=== PATIENT | female | born 1980 | race Caucasian/White ===

== ENCOUNTER 2017-04-25 23:09 | Outpatient (CLI) | payer OTHER ==
[~2017-04-25] VITALS: Ht 172.7 cm; Wt 84.0 kg
== END 2017-04-26 00:12 | disposition home or self-care (01) ==
LOC: LDOP 23:09
PROVIDERS: ATTEND Obstetrics & Gynecology Maternal & Fetal Medicine
DX: O09.513 Supervision of elderly primigravida, third trimester (principal); O36.8130 Decreased fetal movements, third trimester, not applicable or unspecified; Z3A.38 38 weeks gestation of pregnancy
CPT/HCPCS: 59025; 99211; G0463

== ENCOUNTER 2017-05-03 23:18 | Inpatient (IN) | payer OTHER ==
[~2017-05-03] VITALS: Ht 172.7 cm; Wt 85.0 kg
[2017-05-04 00:14] VITALS: BP 126/65
[2017-05-04] MEDS ORDERED: OXYTOCIN 30U/ 0.9% NaCL 500ML 500 ML ONE ×2 (01:18→18:57)
[2017-05-04] MEDS ORDERED: NEWBORN KIT ONE (01:27)
[2017-05-04] MEDS ORDERED: D5%-LACTATED RINGERS 1,000 ML IV SCH (01:29)
[2017-05-04] MEDS ORDERED: OXYTOCIN 30U/ 0.9% NaCL 500ML 500 ML IV PRN (01:29)
[2017-05-04] MEDS ORDERED: OXYTOCIN 30U/ 0.9% NaCL 500ML 500 ML IV ONE (01:29)
[2017-05-04] MEDS ORDERED: TERBUTALINE 1 MG/ML, 1ML IVPush PRN (01:30)
[2017-05-04] MEDS ORDERED: FENTANYL PF 100 MCG/2ML IV PRN (01:30)
[2017-05-04] MEDS ORDERED: CALCIUM CARBONATE 500 MG TAB.CHEW PO PRN (01:30)
[2017-05-04] MEDS ORDERED: ONDANSETRON 2MG/ML, 2ML IVPush PRN ×2 (01:30→19:30)
[2017-05-04] MEDS ORDERED: FENTANYL PF 100 MCG/2ML IVPush PRN (01:30)
[2017-05-04] MEDS ORDERED: ALUMINUM/MAG/SIMETHICONE 30 ML UDC PO PRN (01:30)
[2017-05-04] MEDS ORDERED: TERBUTALINE 1 MG/ML, 1ML SQ PRN (01:30)
[2017-05-04] MEDS ORDERED: SODIUM CITRATE/CITRIC ACID 30 ML UDC PO PRN (01:30)
[2017-05-04] MEDS ORDERED: METOCLOPRAMIDE 5 MG/ML, 2ML IVPush PRN (01:30)
[2017-05-04 02:03] LABS: BASOPHILS # (AUTO) 0.17 x10^3/uL (0-0.1); BASOPHILS % (AUTO) 1 % (0-1); EOSINOPHILS # (AUTO) 0.14 x10^3/uL (0-0.4); EOSINOPHILS % (AUTO) 1 % (1-7); LYMPHOCYTES # (AUTO) 2.17 x10^3/uL (1-3.4); LYMPHOCYTES % (AUTO) 18 % (22-44); MD NO; MEAN CORPUSCULAR HEMOGLOBIN 32.8 pg (27.0-34.8); MEAN CORPUSCULAR VOLUME 96.5 fL (80-100); MEAN PLATELET VOLUME 7.7 fL (7.4-10.4); MONOCYTES # (AUTO) 0.64 x10^3/uL (0.2-0.8); MONOCYTES % (AUTO) 5 % (2-9); NEUTROPHILS # (AUTO) 9.01 x10^3/uL (1.8-6.8); NEUTROPHILS % (AUTO) 74 % (42-75); PLATELET COUNT 224 x10^3/uL (130-400); RED BLOOD COUNT 3.92 x10^6/uL (3.82-5.3); RED CELL DISTRIBUTION WIDTH 13.8 % (9.6-15.2)
[2017-05-04] MEDS: LACTATED RINGERS 1,000 ML IV SCH ×5 (06:18→17:26)
[2017-05-04] MEDS ORDERED: FENTANYL PF 100 MCG/2ML ONE (09:35)
[2017-05-04] MEDS ORDERED: ONDANSETRON 2MG/ML, 2ML ONE (09:35)
[2017-05-04] MEDS ORDERED: BUPIVACAINE/PF 0.25% ONE (09:58)
[2017-05-04] MEDS ORDERED: FENTANYL/BUPIV./NS/PF 250 ML EPIDCONT ONE ×2 (09:59→10:00)
[2017-05-04] MEDS ORDERED: BUPIVACAINE 0.25% ONE (10:00)
[2017-05-04] MEDS ORDERED: LIDOCAINE/PF 1.5%-EPI 1:200K, 30ML ONE (10:00)
[2017-05-04] MEDS ORDERED: METHYLERGONOVINE 0.2 MG/ML IM PRN (17:30)
[2017-05-04] MEDS ORDERED: CARBOPROST TROMETHAMINE 250 MCG/ML, 1ML IM PRN (17:30)
[2017-05-04] MEDS ORDERED: DIPH,PERTUSS(ACELL),TET VAC/PF NC IM-VACC PRN (17:30)
[2017-05-04] MEDS ORDERED: MISOPROSTOL 200 MCG TABLET PR PRN (17:30)
[2017-05-04] MEDS ORDERED: IBUPROFEN 600 MG TABLET ONE (18:57)
[2017-05-04] MEDS: OXYTOCIN 30U/ 0.9% NaCL 500ML 500 ML IV SCH (18:59)
[2017-05-04] MEDS ORDERED: OXYcodone/APAP 5/325MG TABLET PO PRN (19:00)
[2017-05-04] MEDS: IBUPROFEN 200 MG TABLET PO PRN (19:01)
[2017-05-04] MEDS ORDERED: FENTANYL/BUPIV./NS/PF 250 ML EPIDCONT SCH (19:02)
[2017-05-04] MEDS ORDERED: LACTATED RINGERS 1,000 ML IV SCH (19:02)
[2017-05-04] MEDS ORDERED: NALOXONE 0.4 MG/ML, 1ML IVPush PRN (19:30)
[2017-05-04] MEDS ORDERED: EPHEDRINE 50 MG/ML, 1ML IVPush PRN (19:30)
[2017-05-04] MEDS ORDERED: LACTATED RINGERS 1,000 ML IVBOLUS PRN (19:30)
[2017-05-04 19:55] VITALS: BP 113/58
[2017-05-05 00:11] VITALS: BP 103/50
[2017-05-05] MEDS: IBUPROFEN 200 MG TABLET PO PRN ×3 (00:55→14:58)
[2017-05-05 01:40] LABS: BASOPHILS # (AUTO) 0.02 x10^3/uL (0-0.1); BASOPHILS % (AUTO) 0 % (0-1); EOSINOPHILS # (AUTO) 0.06 x10^3/uL (0-0.4); EOSINOPHILS % (AUTO) 0 % (1-7); LYMPHOCYTES # (AUTO) 1.44 x10^3/uL (1-3.4); LYMPHOCYTES % (AUTO) 8 % (22-44); MD NO; MEAN CORPUSCULAR HEMOGLOBIN 33.2 pg (27.0-34.8); MEAN CORPUSCULAR HGB CONC 34.4 g/dL (32.4-35.8); MEAN CORPUSCULAR VOLUME 96.6 fL (80-100); MEAN PLATELET VOLUME 7.9 fL (7.4-10.4); MONOCYTES # (AUTO) 0.58 x10^3/uL (0.2-0.8); MONOCYTES % (AUTO) 3 % (2-9); NEUTROPHILS # (AUTO) 15.13 x10^3/uL (1.8-6.8); NEUTROPHILS % (AUTO) 88 % (42-75); PLATELET COUNT 196 x10^3/uL (130-400); RED BLOOD COUNT 3.48 x10^6/uL (3.82-5.3); RED CELL DISTRIBUTION WIDTH 13.9 % (9.6-15.2)
[2017-05-05] MEDS: OXYTOCIN 30U/ 0.9% NaCL 500ML 500 ML IV SCH (03:19)
[2017-05-05 05:15] VITALS: BP 98/49
[2017-05-05 07:55] VITALS: BP 99/61
[2017-05-05] MEDS ORDERED: PRENATAL VIT/IRON/FA 1 EACH TABLET PO SCH (09:00)
[2017-05-05 20:15] VITALS: BP 104/62
[2017-05-06 07:55] VITALS: BP 101/63
== END 2017-05-06 11:00 | disposition home or self-care (01) | DRG 775 ==
LOC: LDOP 23:18 → LDIP 05-04 01:24 → 2NW 05-04 19:40
PROVIDERS: ADMIT Obstetrics & Gynecology Maternal & Fetal Medicine; ATTEND Obstetrics & Gynecology Maternal & Fetal Medicine
PROC: 10E0XZZ Delivery of Products of Conception, External Approach (ICD-10-PCS; principal; 2017-05-04)
DX: O48.0 Post-term pregnancy (principal); O42.92 Full-term premature rupture of membranes, unspecified as to length of time between rupture and onset of labor; Z37.0 Single live birth; Z3A.41 41 weeks gestation of pregnancy
CPT/HCPCS: 36415; 85025; 86850; 86900; 89060; J2405; J3010; J3490; J2590; J7120; J7121; Q0114

== ENCOUNTER 2018-04-17 11:03 | Outpatient (CLI) | payer SELFPAY ==
[~2018-04-17] VITALS: Ht 172.7 cm; Wt 76.4 kg
[2018-04-17 11:12] VITALS: BP 102/63
[2018-04-17 11:36] LABS: MICROSCOPIC INDICATED
== END 2018-04-17 12:27 | disposition home or self-care (01) ==
LOC: LDOP 11:03
PROVIDERS: ATTEND Obstetrics & Gynecology Maternal & Fetal Medicine
DX: O26.892 Other specified pregnancy related conditions, second trimester (principal); Z3A.28 28 weeks gestation of pregnancy
CPT/HCPCS: 59025; 81001; 87086; 99201; G0463

== ENCOUNTER 2018-07-06 16:48 | Inpatient (IN) | payer OTHER ==
[~2018-07-06] VITALS: Ht 172.7 cm; Wt 81.8 kg
[2018-07-06] MEDS ORDERED: LIDOCAINE 1%, 20ML ONE (16:56)
[2018-07-06] MEDS ORDERED: NEWBORN KIT ONE (16:56)
[2018-07-06] MEDS ORDERED: OXYTOCIN 30U/ 0.9% NaCL 500ML 500 ML ONE ×2 (16:56→20:34)
[2018-07-06] MEDS ORDERED: MISOPROSTOL 200 MCG TABLET ONE (16:56)
[2018-07-06] MEDS ORDERED: FENTANYL PF 100 MCG/2ML ONE (16:59)
[2018-07-06] MEDS ORDERED: OXYTOCIN 30U/ 0.9% NaCL 500ML 500 ML IV ONE (16:59)
[2018-07-06] MEDS ORDERED: D5%-LACTATED RINGERS 1,000 ML IV SCH (16:59)
[2018-07-06] MEDS ORDERED: FENTANYL PF 100 MCG/2ML IV PRN (17:00)
[2018-07-06] MEDS ORDERED: SODIUM CITRATE/CITRIC ACID 30 ML UDC PO PRN (17:00)
[2018-07-06] MEDS: LACTATED RINGERS 1,000 ML IV SCH ×2 (17:00→18:24)
[2018-07-06] MEDS ORDERED: FENTANYL PF 100 MCG/2ML IVPush PRN (17:00)
[2018-07-06] MEDS ORDERED: ONDANSETRON 2MG/ML, 2ML IVPush PRN (17:00)
[2018-07-06] MEDS ORDERED: METOCLOPRAMIDE 5 MG/ML, 2ML IVPush PRN (17:00)
[2018-07-06] MEDS: OXYTOCIN 30U/ 0.9% NaCL 500ML 500 ML IV SCH (18:03)
[2018-07-06] MEDS ORDERED: IBUPROFEN 600 MG TABLET ONE (18:19)
[2018-07-06] MEDS ORDERED: OXYcodone/APAP 5/325MG TABLET ONE (18:19)
[2018-07-06] MEDS: IBUPROFEN 600 MG TABLET PO PRN (18:23)
[2018-07-06] MEDS ORDERED: CARBOPROST TROMETHAMINE 250 MCG/ML, 1ML IM PRN (18:30)
[2018-07-06] MEDS ORDERED: ACETAMINOPHEN 325 MG TABLET PO PRN (18:30)
[2018-07-06] MEDS ORDERED: DOCUSATE 100 MG CAPSULE PO PRN (18:30)
[2018-07-06] MEDS ORDERED: METHYLERGONOVINE 0.2 MG/ML IM PRN (18:30)
[2018-07-06] MEDS ORDERED: RHOGAM FROM BLOOD BANK 1 NOTE EA IM/IV ONE (18:30)
[2018-07-06] MEDS ORDERED: DIPH,PERTUSS(ACELL),TET VAC/PF NC IM-VACC PRN (18:30)
[2018-07-06] MEDS ORDERED: OXYcodone/APAP 5/325MG TABLET PO PRN ×2 (18:30)
[2018-07-06] MEDS ORDERED: MISOPROSTOL 200 MCG TABLET PR PRN (18:30)
[2018-07-06] MEDS ORDERED: MEASLES,MUMPS&RUBELLA VACC/PF 0.5 ML SQ-VACC PRN (18:30)
[2018-07-06 20:20] VITALS: BP 105/65
[2018-07-07 00:35] VITALS: BP 109/67
[2018-07-07 02:36] LABS: BASOPHILS % (AUTO) 1 % (0-1); EOSINOPHILS # (AUTO) 0.06 x10^3/uL (0-0.4); EOSINOPHILS % (AUTO) 0 % (1-7); LYMPHOCYTES # (AUTO) 1.89 x10^3/uL (1-3.4); LYMPHOCYTES % (AUTO) 13 % (22-44); MD NO; MEAN CORPUSCULAR HEMOGLOBIN 33.2 pg (27.0-34.8); MEAN PLATELET VOLUME 7.4 fL (7.4-10.4); MONOCYTES # (AUTO) 0.54 x10^3/uL (0.2-0.8); MONOCYTES % (AUTO) 4 % (2-9); NEUTROPHILS # (AUTO) 12.01 x10^3/uL (1.8-6.8); NEUTROPHILS % (AUTO) 82 % (42-75); PLATELET COUNT 200 x10^3/uL (130-400); RED BLOOD COUNT 3.93 x10^6/uL (3.82-5.3); RED CELL DISTRIBUTION WIDTH 13.7 % (9.6-15.2)
[2018-07-07] MEDS: OXYTOCIN 30U/ 0.9% NaCL 500ML 500 ML IV SCH ×2 (04:03→14:03)
[2018-07-07 04:15] VITALS: BP 104/54
[2018-07-07] MEDS: IBUPROFEN 600 MG TABLET PO PRN (04:53)
[2018-07-07 08:30] VITALS: BP 102/62
[2018-07-07] MEDS ORDERED: PRENATAL VIT/IRON/FA 1 EACH TABLET PO SCH (09:00)
[2018-07-07 12:15] VITALS: BP 100/63
[2018-07-07 20:25] VITALS: BP 111/71
== END 2018-07-07 23:45 | disposition home or self-care (01) | DRG 807 ==
LOC: LDOP 16:48 → LDIP 16:57 → 2NW 20:22
PROVIDERS: ADMIT Obstetrics & Gynecology Maternal & Fetal Medicine; ATTEND Obstetrics & Gynecology Maternal & Fetal Medicine
PROC: 10E0XZZ Delivery of Products of Conception, External Approach (ICD-10-PCS; principal; 2018-07-06)
DX: O99.52 Diseases of the respiratory system complicating childbirth (principal); Z37.0 Single live birth; Z3A.39 39 weeks gestation of pregnancy; J45.909 Unspecified asthma, uncomplicated
CPT/HCPCS: 36415; 85025; G0378; J3010; J7120

== ENCOUNTER 2018-10-07 14:33 | Outpatient (CLI) | payer OTHER ==
[2018-10-07] MEDS ORDERED: PREN1TAB10 PO (15:12)
== END 2018-10-07 23:59 | disposition home or self-care (01) ==
LOC: STAR 14:33
PROVIDERS: ATTEND Obstetrics & Gynecology Maternal & Fetal Medicine
DX: Z02.9 Encounter for administrative examinations, unspecified (principal)

== ENCOUNTER 2018-10-14 14:25 | Day surgery (SDC) | payer OTHER ==
[~2018-10-14] VITALS: Ht 175.3 cm; Wt 67.9 kg
[~2018-10-14 14:25] MED LIST: KETOROLAC 30 MG/1 ML ONE; PREN1TAB10 PO
[2018-10-14] MEDS ORDERED: LACTATED RINGERS 1,000 ML IV SCH (14:52)
[2018-10-14 14:54] VITALS: BP 108/70
[2018-10-14] MEDS ORDERED: GABAPENTIN 300 MG CAPSULE PO ONE (15:00)
[2018-10-14] MEDS ORDERED: SCOPOLAMINE PATCH, 1.5MG PATCH.TD72 TD ONE (15:00)
[2018-10-14] MEDS ORDERED: ACETAMINOPHEN 500 MG TABLET PO ONE (15:00)
[2018-10-14] MEDS ORDERED: DIAZEPAM 5 MG TABLET PO ONE (15:00)
[2018-10-14] MEDS ORDERED: FENTANYL PF 250 MCG/5ML ONE (15:19)
[2018-10-14] MEDS ORDERED: MIDAZOLAM 1 MG/ML, 2ML ONE (15:19)
[2018-10-14 15:25] LABS: HCG UR SG 1.036 (1.003-1.030)
[2018-10-14] MEDS ORDERED: EPINEPHRINE 1 MG/ML, 1ML ONE (16:08)
[2018-10-14] MEDS ORDERED: BUPIVACAINE/PF 0.25% ONE (16:08)
[2018-10-14] MEDS ORDERED: NEOSPORIN OINT, 15GM ONE (16:08)
[2018-10-14] MEDS ORDERED: GLYCOPYRROLATE 0.2MG/1ML, 5ML ONE (16:58)
[2018-10-14] MEDS ORDERED: DEXAMETHASONE 4 MG/ML, 1ML ONE (16:58)
[2018-10-14] MEDS ORDERED: ONDANSETRON 2MG/ML, 2ML ONE (16:58)
[2018-10-14] MEDS ORDERED: ROCURONIUM 10MG/ML,5ML ONE (16:58)
[2018-10-14] MEDS ORDERED: PROPOFOL 10 MG/ML, 20ML ONE (16:58)
[2018-10-14] MEDS ORDERED: NEOSTIGMINE 1 MG/ML, 10ML ONE (16:58)
[2018-10-14] MEDS ORDERED: HYDROmorphone 2 MG/ML, 1ML IVPush PRN (17:00)
[2018-10-14] MEDS ORDERED: ALBUTEROL/IPRATROPIUM 2.5MG/0.5MG, 3 ML NPPB PRN (17:00)
[2018-10-14] MEDS ORDERED: DIAZEPAM 5 MG/ML, 2ML IVPush PRN (17:00)
[2018-10-14] MEDS ORDERED: FENTANYL PF 100 MCG/2ML IV PRN (17:00)
[2018-10-14] MEDS ORDERED: ONDANSETRON 2MG/ML, 2ML IV PRN (17:00)
[2018-10-14] MEDS ORDERED: MIDAZOLAM 1 MG/ML, 2ML IV PRN (17:00)
[2018-10-14] MEDS ORDERED: PROMETHAZINE 25 MG/ML, 1ML IV PRN (17:00)
[2018-10-14] MEDS ORDERED: OXYcodone 5 MG/5 ML ORAL.SOL UDC PO PRN (17:00)
[2018-10-14] MEDS ORDERED: hydrALAzine 20 MG/ML, 1ML IV PRN (17:00)
[2018-10-14] MEDS ORDERED: MEPERIDINE/PF 25MG/0.5ML IVPush PRN (17:00)
[2018-10-14] MEDS ORDERED: OXYcodone 5 MG/5 ML ORAL.SOL UDC ONE (17:23)
[2018-10-14] MEDS ORDERED: FENTANYL PF 100 MCG/2ML ONE (17:23)
== END 2018-10-14 19:02 | disposition home or self-care (01) ==
LOC: OR 14:25
PROVIDERS: ATTEND Obstetrics & Gynecology Maternal & Fetal Medicine
DX: Z30.2 Encounter for sterilization (principal); J45.909 Unspecified asthma, uncomplicated; Z79.899 Other long term (current) drug therapy; Z88.0 Allergy status to penicillin; Z88.8 Allergy status to other drugs, medicaments and biological substances; Z98.890 Other specified postprocedural states; Z80.41 Family history of malignant neoplasm of ovary
CPT/HCPCS: 58670; 81025; 88302; J0171; J1100; J1885; J2250; J2405; J2704; J2710; J3010; J3490; J7120

== ENCOUNTER 2020-01-21 11:00 | Outpatient (CLI) | payer OTHER ==
[~2020-01-21 11:00] MED LIST changes: -KETOROLAC 30 MG/1 ML ONE
== END 2020-01-21 23:59 | disposition home or self-care (01) ==
LOC: CFH 11:00
PROVIDERS: ATTEND Family Medicine
DX: Z12.31 Encounter for screening mammogram for malignant neoplasm of breast (principal)
CPT/HCPCS: 77063; 77067